=== PATIENT | female | born 1945 | race Caucasian/White ===

== ENCOUNTER 2019-01-16 15:29 | Emergency (ER) | payer MEDICARE, BC ==
[2019-01-16 15:45] VITALS: BP 125/80
--- NOTE | 2019-01-16 16:33 | UC ---
Lower Extremity/Ankle HPI - HPI Summary HPI Summary: A large rock fell on her left great toe about a week ago. She's had pain since and the nail appears to be looking like he might fall. She came in concerned there could be infection. - History of Current Complaint Chief Complaint: ELYSE[place] Stated Complaint: BIG TOE INJURY Time Seen by Provider: 01/16/19 15:52 Hx Obtained From: Patient Onset/Duration: Lasting Days - 6 Severity Initially: Moderate Severity Currently: Mild Pain Intensity: 0 Aggravating Factor(s): Ambulation Alleviating Factor(s): Rest Able to Bear Weight: Yes - Allergies/Home Medications Allergies/Adverse Reactions: Allergies Allergy/AdvReac Type Severity Reaction Status Date / Time No Known Allergies Allergy Verified 01/16/19 15:46 Home Medications: Home Medications NK [No Home Medications Reported] 01/16/19 [History Confirmed 01/16/19] PMH/Surg Hx/FS Hx/Imm Hx Previously Healthy: Yes - Surgical History Surgical History: Yes Surgery Procedure, Year, and Place: T&A, dental - Social History Alcohol Use: Daily Substance Use Type: None Smoking Status (MU): Never Smoked Tobacco Review of Systems All Other Systems Reviewed And Are Negative: Yes Neurovascular: Positive: Negative Musculoskeletal: Positive: Negative Neurological: Positive: Negative Physical Exam - Summary Physical Exam Summary: She is non-toxic in appearance with stable vitals Triage Information Reviewed: Yes Vital Signs: Initial Vital Signs Temp 98.4 F 01/16/19 15:40 Pulse 90 01/16/19 15:40 Resp 16 01/16/19 15:40 BP 125/80 01/16/19 15:40 Pulse Ox 98 01/16/19 15:40 Vital Signs Reviewed: Yes Musculoskeletal: Positive: Other: - She's got mild erythema around the base of her great toenail on the left. There is evidence that there was a subungual hematoma that is resolving. Diagnostics - Radiology Left Great Toe Radiology Interpretation Completed By: Radiologist Summary of Radiographic Findings: Tuft fracture Lower Extremity Course/Dx - Course Course Of Treatment: I am going to give her antibiotics given that there is a tuft fracture. I don' t think the wound is infected at this point. She may lose the nail and we spoke about the efficacy of leaving the nail intact as a splint. - Differential Dx/Diagnosis Provider Diagnosis: Fracture of great toe Discharge ED - Sign-Out/Discharge Documenting (check all that apply): Patient Departure All imaging exams completed and their final reports reviewed: Yes - Discharge Plan Condition: Stable Disposition: HOME Patient Education Materials: Toe Fracture (ED) Referrals: Sary Hopper MD [Primary Care Provider] - - Billing Disposition and Condition Condition: STABLE Disposition: Home
== END 2019-01-16 16:54 | disposition home or self-care (01) ==
LOC: UCEAST 15:29
DX: S92.402A Displaced unspecified fracture of left great toe, initial encounter for closed fracture (principal); W20.8XXA Other cause of strike by thrown, projected or falling object, initial encounter; Y92.9 Unspecified place or not applicable
CPT/HCPCS: 99202; G0463